=== PATIENT | male | born 1965 | race Caucasian/White ===

== ENCOUNTER 2020-09-17 14:28 | Inpatient (IN) | payer MEDICARE, MEDICAID ==
[~2020-09-17] VITALS: Ht 177.8 cm; Wt 73.0 kg
[~2020-09-17 14:28] MED LIST: AMLO2.5T45 PO; ASPI-1406; ASPI-1497 PO; BENA40TA66; CILO100T PO; GABA-290 PO; GLIP10TA10 PO; LOSA100T32 PO; METF-416 PO; METF1000; PIOG45TA5 PO; SIMV10TA97 PO
[2020-09-17 15:42] LABS: BASOPHILS % 0.8 % (0.0-2.0); HEMATOCRIT. 45.3 % (42.0-52.0); HEMOGLOBIN. 14.9 g/dL (14.0-18.0); LYMPHOCYTES % 8.5 % (20.0-50.0); MEAN CORPUSCULAR VOLUME 91.1 fL (80.0-94.0); MEAN PLATELET VOLUME 9.1 fl (7.4-10.4); MONOCYTES % 4.9 % (2.0-8.0); NEUTROPHILS % 84.8 % (40.0-76.0); PLATELET 171 x1000/uL (130-400); RED BLOOD CELL COUNT 4.98 mill/uL (4.7-6.1); RED CELL DISTRIBUTION WIDTH 14.4 % (11.6-14.6)
[2020-09-17 15:48] LABS: CHLORIDE 98 mEq/L (98-107)
[2020-09-17] MEDS ORDERED: ONDANSETRON HCL 4MG/2ML INJ IV ONE (16:00)
[2020-09-17] MEDS ORDERED: FENTANYL CITRATE/PF 50MCG/ML 2ML VIAL IV ONE (16:45)
[2020-09-17] MEDS ORDERED: CEFTRIAXONE SODIUM 1 G/VIAL IM ONE (17:30)
[2020-09-17] MEDS ORDERED: CEFTRIAXONE 1 G PREMIX 50 ML IV ONE (18:00)
[2020-09-17] MEDS ORDERED: MAGNESIUM/ALUMINUM HYDROXIDE/SIMETHICONE 30ML UDC PO PRN (21:45)
[2020-09-17] MEDS ORDERED: ACETAMINOPHEN 325MG TABLET PO PRN (21:45)
[2020-09-17] MEDS ORDERED: HYDROMORPHONE HCL/PF 2MG/ML CPJ IV PRN (21:45)
[2020-09-18] VITALS (7 sets, daily range): BP systolic 90–119; BP diastolic 56–71
[2020-09-18 06:11] LABS: CHLORIDE 101 mEq/L (98-107)
[2020-09-18 06:38] LABS: BASOPHILS % 0.5 % (0.0-2.0); EOSINOPHILS % 0.9 % (0.0-5.0); HEMATOCRIT. 40.2 % (42.0-52.0); HEMOGLOBIN. 13.3 g/dL (14.0-18.0); LYMPHOCYTES % 18.8 % (20.0-50.0); MEAN CORPUSCULAR VOLUME 90.7 fL (80.0-94.0); MEAN PLATELET VOLUME 9.2 fl (7.4-10.4); MONOCYTES % 11.9 % (2.0-8.0); NEUTROPHILS % 67.9 % (40.0-76.0); PLATELET 176 x1000/uL (130-400); RED BLOOD CELL COUNT 4.43 mill/uL (4.7-6.1); RED CELL DISTRIBUTION WIDTH 14.5 % (11.6-14.6)
[2020-09-18] MEDS ORDERED: DEXTROSE 50% WATER 50ML SYRINGE IV PRN (09:30)
[2020-09-18] MEDS: BLOOD SUGAR DIAGNOSTIC STRIP TEST SCH ×3 (12:10→21:16)
[2020-09-18] MEDS: INSULIN LISPRO 100 UNITS/ML SUBCUT SCH ×3 (12:16→21:00)
[2020-09-19] VITALS (22 sets, daily range): BP systolic 124–178; BP diastolic 74–104
[2020-09-19] MEDS: BLOOD SUGAR DIAGNOSTIC STRIP TEST SCH ×4 (06:12→20:37)
[2020-09-19] MEDS: INSULIN LISPRO 100 UNITS/ML SUBCUT SCH ×4 (06:12→20:37)
[2020-09-19] MEDS ORDERED: ALTEPLASE 2MG/VIAL ITC SCH (10:00)
[2020-09-19 11:45] LABS: PROTHROMBIN TIME 10.8 sec (9.6-11.0)
[2020-09-19] MEDS ORDERED: CEFAZOLIN 1000MG PREMIX 50 ML IV NR (12:15)
[2020-09-19] MEDS ORDERED: FENTANYL CITRATE/PF 50MCG/ML 2ML VIAL ONE (12:26)
[2020-09-19] MEDS ORDERED: HEPARIN 1000 UNITS/ML 10ML ONE (12:31)
[2020-09-19] MEDS ORDERED: LIDOCAINE HCL 1% 20ML VIAL (Pyxis) INJ ONE (12:31)
[2020-09-19] MEDS ORDERED: IOHEXOL-300 100 ML BOTTLE ONE (12:31)
[2020-09-19] MEDS ORDERED: VANCOMYCIN 1500MG in DEXTROSE 5% WATER 250ML IV SCH (13:00)
[2020-09-19] MEDS: ONDANSETRON HCL 4MG/2ML INJ IV PRN (19:55)
[2020-09-20] VITALS (7 sets, daily range): BP systolic 114–162; BP diastolic 69–93
[2020-09-20] MEDS: ONDANSETRON HCL 4MG/2ML INJ IV PRN ×2 (05:03→13:40)
[2020-09-20] MEDS: INSULIN LISPRO 100 UNITS/ML SUBCUT SCH ×4 (06:23→21:37)
[2020-09-20] MEDS: BLOOD SUGAR DIAGNOSTIC STRIP TEST SCH ×4 (06:23→21:37)
[2020-09-20 06:33] LABS: BASOPHILS % 0.6 % (0.0-2.0); EOSINOPHILS % 2.4 % (0.0-5.0); HEMATOCRIT. 39.3 % (42.0-52.0); HEMOGLOBIN. 13.1 g/dL (14.0-18.0); LYMPHOCYTES % 17.8 % (20.0-50.0); MEAN CORPUSCULAR HEMOGLOBIN 30.3 pg (28.0-32.0); MEAN CORPUSCULAR VOLUME 90.4 fL (80.0-94.0); MEAN PLATELET VOLUME 8.8 fl (7.4-10.4); MONOCYTES % 9.7 % (2.0-8.0); NEUTROPHILS % 69.5 % (40.0-76.0); PLATELET 158 x1000/uL (130-400); RED BLOOD CELL COUNT 4.34 mill/uL (4.7-6.1); RED CELL DISTRIBUTION WIDTH 14.4 % (11.6-14.6)
[2020-09-20 07:18] LABS: CHLORIDE 101 mEq/L (98-107)
[2020-09-20] MEDS ORDERED: FENTANYL CITRATE/PF 50MCG/ML 2ML VIAL IV SCH (08:15)
[2020-09-20] MEDS: CLONIDINE 0.1MG TABLET PO PRN (13:35)
[2020-09-21] VITALS: BP 116/80
[2020-09-21 04:00] VITALS: BP 138/82
[2020-09-21] MEDS: BLOOD SUGAR DIAGNOSTIC STRIP TEST SCH ×2 (07:07→12:10)
[2020-09-21] MEDS: INSULIN LISPRO 100 UNITS/ML SUBCUT SCH ×2 (07:09→13:39)
[2020-09-21 08:00] VITALS: BP 139/87
[2020-09-21 12:00] VITALS: BP 141/87
[2020-09-21 16:00] VITALS: BP 168/92
[2020-09-21] MEDS: CLONIDINE 0.1MG TABLET PO PRN (17:19)
[2020-09-21 17:20] VITALS: BP 151/88
[2020-09-21] MEDS ORDERED: ONDA4TAB5 PO (17:52)
== END 2020-09-21 18:35 | disposition home or self-care (01) | DRG 314 ==
LOC: ER 14:47 → 8WST 19:14 → ENRESERV 23:17 → 8WST 23:49
PROVIDERS: ADMIT Hospitalist; ATTEND Hospitalist
PROC: 5A1D70Z Performance of Urinary Filtration, Intermittent, Less than 6 Hours Per Day (ICD-10-PCS; 2020-09-18)
PROC: B51W1ZZ Fluoroscopy of Dialysis Shunt/Fistula using Low Osmolar Contrast (ICD-10-PCS; principal; 2020-09-19)
PROC: B548ZZA Ultrasonography of Superior Vena Cava, Guidance (ICD-10-PCS; 2020-09-19)
PROC: 02HV33Z Insertion of Infusion Device into Superior Vena Cava, Percutaneous Approach (ICD-10-PCS; 2020-09-19)
PROC: B5181ZA Fluoroscopy of Superior Vena Cava using Low Osmolar Contrast, Guidance (ICD-10-PCS; 2020-09-19)
PROC: 5A1D70Z Performance of Urinary Filtration, Intermittent, Less than 6 Hours Per Day (ICD-10-PCS; 2020-09-21)
DX: T82.868A Thrombosis due to vascular prosthetic devices, implants and grafts, initial encounter (principal); K85.90 Acute pancreatitis without necrosis or infection, unspecified; I50.33 Acute on chronic diastolic (congestive) heart failure; N18.6 End stage renal disease; I13.2 Hypertensive heart and chronic kidney disease with heart failure and with stage 5 chronic kidney disease, or end stage renal disease; E87.1 Hypo-osmolality and hyponatremia; R78.81 Bacteremia; T82.818A Embolism due to vascular prosthetic devices, implants and grafts, initial encounter; E11.22 Type 2 diabetes mellitus with diabetic chronic kidney disease; E87.5 Hyperkalemia; N20.0 Calculus of kidney; Y83.2 Surgical operation with anastomosis, bypass or graft as the cause of abnormal reaction of the patient, or of later complication, without mention of misadventure at the time of the procedure; Z20.822 Contact with and (suspected) exposure to COVID-19; I95.9 Hypotension, unspecified; Z99.2 Dependence on renal dialysis; Z87.891 Personal history of nicotine dependence; Y92.89 Other specified places as the place of occurrence of the external cause
CPT/HCPCS: 36415; 36556; 36901; 74176; 76700; 76937; 77001; 80048; 80053; 80076; 80202; 82962; 83605; 84484; 85025; 87426; 93005; 99152; 99153; 99285; C1725; C1752; C1766; C1769; J0690; J0696; J1170; J1644; J1815; J2405; J2997; J3010; J3370; J3490; J7040; J7060; Q9967; G0500

== ENCOUNTER 2024-07-26 06:43 | Inpatient (IN) | payer MEDICARE, MEDICAID ==
[~2024-07-26] VITALS: Ht 177.8 cm; Wt 71.2 kg
[~2024-07-26 06:43] MED LIST changes: -CILO100T PO; +CILO100T3 PO; -GLIP10TA10 PO; +GLIP10TA17 PO; -LOSA100T32 PO; +LOSA100T33 PO; +ONDA4TAB5 PO
[2024-07-26] MEDS: KETOROLAC 30MG/ML VIAL IM STA (07:44)
[2024-07-26] MEDS: ONDANSETRON HCL 4MG/2ML INJ IM ONE (07:48)
[2024-07-26] MEDS ORDERED: MORPHINE SULFATE 4 MG/ML INJ (FOR IV/IM USE) IV STA (08:29)
[2024-07-26 09:38] LABS: CHLORIDE 105 mEq/L (98-107); POTASSIUM 4.8 mEq/L (3.5-5.1); SODIUM 141 mEq/L (136-145)
[2024-07-26] MEDS: MORPHINE SULFATE 4 MG/ML INJ (FOR IV/IM USE) IM ONE (09:38)
[2024-07-26 09:39] LABS: CARBON DIOXIDE 23 mEq/L (21-32)
[2024-07-26 09:40] LABS: CALCIUM 8.5 mg/dL (8.7-10.4)
[2024-07-26 09:45] LABS: GLUCOSE 240 mg/dL (70-105); UREA NITROGEN BLOOD 26 mg/dL (9-23)
[2024-07-26 09:47] LABS: ALANINE AMINOTRANSFERASE 11 IU/L (10-49); ASPARTATE AMINOTRANSFERASE 10 IU/L (<34); BILIRUBIN DIRECT 0.1 mg/dL (<=3.0); BILIRUBIN TOTAL 0.3 mg/dL (0.1-1.0); PROTEIN TOTAL 6.9 g/dL (6.0-8.3)
[2024-07-26 09:51] LABS: BASOPHILS % 0.9 % (0.0-2.0); DIFFERENTIAL COMMENT 0; HEMATOCRIT. 44.3 % (42.0-52.0); LYMPHOCYTES % 8.4 % (20.0-50.0); MEAN CORPUSCULAR HEMOGLOBIN 27.8 pg (28.0-32.0); MEAN CORPUSCULAR HGB CONC 31.5 g/dL (31.0-37.0); MEAN CORPUSCULAR VOLUME 88.1 fL (80.0-94.0); MEAN PLATELET VOLUME 8.3 fl (7.4-10.4); MONOCYTES % 4.7 % (2.0-8.0); PLATELET 190 x1000/uL (130-400); RED BLOOD CELL COUNT 5.03 mill/uL (4.7-6.1); RED CELL DISTRIBUTION WIDTH 21.2 % (11.6-14.6)
[2024-07-26 10:19] LABS: CREATININE 7.4 mg/dL (0.6-1.3)
[2024-07-26 17:00] VITALS: BP 146/90; PULSE 94; RESP 18; TEMP 36.44736; O2SAT 99
[2024-07-26] MEDS: HYDROCODONE/ACETAMINOPHEN 10/325MG TABLET PO PRN (19:11)
[2024-07-26] MEDS ORDERED: NALOXONE HCL 0.4MG/ML VIAL IV PRN (19:15)
[2024-07-26 20:00] VITALS: BP 157/94; PULSE 73; RESP 19; TEMP 36.6696; O2SAT 100
[2024-07-26] MEDS ORDERED: ONDANSETRON HCL 4MG/2ML INJ IV PRN (20:45)
[2024-07-26] MEDS ORDERED: DEXTROSE 50% WATER 50ML SYRINGE IV PRN (20:45)
[2024-07-26] MEDS: BLOOD SUGAR DIAGNOSTIC STRIP TEST SCH (21:00)
[2024-07-26] MEDS: INSULIN LISPRO 100 UNITS/ML SUBCUT SCH (21:00)
[2024-07-26] MEDS: AMLODIPINE 10MG TABLET PO SCH (22:04)
[2024-07-27] VITALS: BP 154/94; PULSE 67; RESP 19; TEMP 36.50292; O2SAT 100
[2024-07-27 00:40] VITALS: BP 154/94; PULSE 67; RESP 18; TEMP 36.5292
[2024-07-27] MEDS: GABAPENTIN 100MG CAPSULE PO SCH (06:00)
[2024-07-27 06:55] LABS: CALCIUM 8.5 mg/dL (8.7-10.4)
[2024-07-27 07:02] LABS: PHOSPHORUS 6.9 mg/dL (2.5-4.9)
[2024-07-27 07:07] LABS: CREATININE 8.9 mg/dL (0.6-1.3)
[2024-07-27 08:00] VITALS: BP 154/84; PULSE 84; RESP 18; TEMP 36.6; O2SAT 95
[2024-07-27 08:03] LABS: BASOPHILS % 1.3 % (0.0-2.0); DIFFERENTIAL COMMENT 0; EOSINOPHILS % 2.6 % (0.0-5.0); HEMATOCRIT. 41.6 % (42.0-52.0); HEMOGLOBIN. 13.3 g/dL (14.0-18.0); LYMPHOCYTES % 29.4 % (20.0-50.0); MEAN CORPUSCULAR HEMOGLOBIN 28.2 pg (28.0-32.0); MEAN CORPUSCULAR HGB CONC 32.1 g/dL (31.0-37.0); MEAN PLATELET VOLUME 8.2 fl (7.4-10.4); MONOCYTES % 11.2 % (2.0-8.0); NEUTROPHILS % 55.5 % (40.0-76.0); PLATELET 181 x1000/uL (130-400); RED BLOOD CELL COUNT 4.72 mill/uL (4.7-6.1); RED CELL DISTRIBUTION WIDTH 21.3 % (11.6-14.6); WHITE BLOOD COUNT 6.3 x1000/uL (4.5-11.0)
[2024-07-27] MEDS ORDERED: SIMVASTATIN 20 MG PO SCH (09:00)
[2024-07-27] MEDS: SEVELAMER CARBONATE 800 MG TABLET PO SCH (09:01)
[2024-07-27] MEDS: ATORVASTATIN CALCIUM 10MG TABLET PO SCH (09:02)
[2024-07-27] MEDS: LOSARTAN 100 MG TABLET PO SCH (09:02)
[2024-07-27] MEDS: FOLIC ACID/VITAMIN B COMP W-C TABLET PO SCH (09:02)
[2024-07-27] MEDS: ASPIRIN 81MG TABLET PO SCH (09:03)
[2024-07-27 12:00] VITALS: BP 122/79; PULSE 76; RESP 18; TEMP 36.7; O2SAT 99
[2024-07-27] MEDS: LIDOCAINE 5% PATCH TOP SCH (13:11)
[2024-07-27] MEDS: ENOXAPARIN 30MG/0.3ML SYR SUBCUT SCH (15:16)
[2024-07-27 16:00] VITALS: BP 124/65; PULSE 77; RESP 19; TEMP 36.8; O2SAT 99
[2024-07-27 20:00] VITALS: BP 106/62; PULSE 88; RESP 16; TEMP 36.6; O2SAT 9
[2024-07-28 04:00] VITALS: BP 111/63; PULSE 88; RESP 18; TEMP 36.7; O2SAT 94
[2024-07-28 07:25] LABS: HEPATITIS B SURFACE ANTIGEN NEGATIVE (Negative)
[2024-07-28 07:45] LABS: HEPATITIS A AB IGM NEGATIVE (Negative)
[2024-07-28 07:46] LABS: HEPATITIS B CORE AB IGM NEGATIVE (Negative); HEPATITIS C AB NON REACTIVE (Neg) (Negative)
[2024-07-28 08:00] VITALS: BP 128/70; PULSE 83; RESP 18; TEMP 36.6; O2SAT 100
[2024-07-28 12:00] VITALS: BP 123/82; PULSE 73; RESP 18; TEMP 37
[2024-07-28 16:00] VITALS: BP 121/60; PULSE 86; RESP 18; TEMP 36.9; O2SAT 98
[2024-07-29] VITALS (9 sets, daily range): BP systolic 90–111; BP diastolic 44–74; PULSE 60–88; RESP 16–18; TEMP 35.8–36.6696; O2SAT 89–100
[2024-07-29] MEDS: ACETAMINOPHEN 325MG TABLET PO PRN (16:15)
[2024-07-29] MEDS ORDERED: LACTULOSE 20G/30ML UDC PO PRN (18:45)
[2024-07-30 08:00] VITALS: BP 114/63; PULSE 88; RESP 18; TEMP 36.9; O2SAT 100
[2024-07-30] MEDS: DOCUSATE SODIUM 250MG CAPSULE PO SCH (11:22)
[2024-07-30 12:00] VITALS: BP 128/69; PULSE 90; RESP 18; TEMP 36.8; O2SAT 95
[2024-07-30 16:00] VITALS: BP 137/78; PULSE 92; RESP 19; TEMP 36.3; O2SAT 98
[2024-07-30 19:43] VITALS: BP 137/78; PULSE 92; TEMP 97.4; O2SAT 97
== END 2024-07-30 19:40 | DRG 183 ==
LOC: ER 07:12 → 6WST 10:57 → EDBEDREQTM 11:17 → EDBEDREQ 11:17
PROVIDERS: ADMIT Internal Medicine; ATTEND Internal Medicine
PROC: 5A1D70Z Performance of Urinary Filtration, Intermittent, Less than 6 Hours Per Day (ICD-10-PCS; principal; 2024-07-29)
DX: S22.41XA Multiple fractures of ribs, right side, initial encounter for closed fracture (principal); N18.6 End stage renal disease; I12.0 Hypertensive chronic kidney disease with stage 5 chronic kidney disease or end stage renal disease; G82.20 Paraplegia, unspecified; M43.17 Spondylolisthesis, lumbosacral region; E11.42 Type 2 diabetes mellitus with diabetic polyneuropathy; E11.22 Type 2 diabetes mellitus with diabetic chronic kidney disease; R29.6 Repeated falls; K80.20 Calculus of gallbladder without cholecystitis without obstruction; W18.39XA Other fall on same level, initial encounter; Z99.2 Dependence on renal dialysis; Z79.82 Long term (current) use of aspirin; Z79.899 Other long term (current) drug therapy; Y93.89 Activity, other specified; Y92.89 Other specified places as the place of occurrence of the external cause; Y99.8 Other external cause status
CPT/HCPCS: 36415; 71101; 72131; 72146; 72148; 74176; 76705; 80048; 80061; 80076; 82962; 83036; 84100; 85025; 86705; 86709; 87340; 90935; 93970; 97162; 97166; 97760; 99285; A4606; J1650; J1815; J1885; J2270; J2405

== ENCOUNTER 2024-08-04 22:10 | Inpatient (IN) | payer MEDICARE, MEDICAID ==
[~2024-08-04] VITALS: Ht 177.8 cm; Wt 71.2 kg
[2024-08-04 20:00] VITALS: BP 133/73; PULSE 96; RESP 18; TEMP 36.5; O2SAT 97
[2024-08-04 22:10] VITALS: BP 133/73; PULSE 86; RESP 18; TEMP 36.5
[~2024-08-04 22:10] MED LIST changes: -METF-416 PO; -METF1000
[2024-08-05] MEDS ORDERED: NALOXONE HCL 0.4MG/ML 1ML VIAL IV PRN (00:45)
[2024-08-05] MEDS ORDERED: ACETAMINOPHEN 325MG TABLET PO PRN ×2 (00:45)
[2024-08-05] MEDS ORDERED: ALBUTEROL (0.083%) 2.5MG/3ML NEB HHN PRN (00:45)
[2024-08-05] MEDS ORDERED: DEXTROSE 50% WATER 50ML SYRINGE IV PRN ×2 (00:45→07:00)
[2024-08-05] MEDS ORDERED: LACTULOSE 20G/30ML UDC PO PRN (00:45)
[2024-08-05] MEDS: BLOOD SUGAR DIAGNOSTIC STRIP TEST SCH ×3 (06:47→11:15)
[2024-08-05] MEDS: GABAPENTIN 100MG CAPSULE PO SCH (07:02)
[2024-08-05 07:12] LABS: BASOPHILS % 1.2 % (0.0-2.0); DIFFERENTIAL COMMENT 0; EOSINOPHILS % 4.6 % (0.0-5.0); HEMATOCRIT. 38.6 % (42.0-52.0); HEMOGLOBIN. 12.8 g/dL (14.0-18.0); LYMPHOCYTES % 18.3 % (20.0-50.0); MEAN CORPUSCULAR HEMOGLOBIN 28.7 pg (28.0-32.0); MEAN CORPUSCULAR HGB CONC 33.3 g/dL (31.0-37.0); MEAN CORPUSCULAR VOLUME 86.3 fL (80.0-94.0); MEAN PLATELET VOLUME 7.9 fl (7.4-10.4); MONOCYTES % 12.5 % (2.0-8.0); NEUTROPHILS % 63.4 % (40.0-76.0); PLATELET 261 x1000/uL (130-400); RED BLOOD CELL COUNT 4.47 mill/uL (4.7-6.1); RED CELL DISTRIBUTION WIDTH 19.3 % (11.6-14.6); WHITE BLOOD COUNT 6.7 x1000/uL (4.5-11.0)
[2024-08-05 07:15] LABS: CHLORIDE 97 mEq/L (98-107); POTASSIUM 4.2 mEq/L (3.5-5.1); SODIUM 138 mEq/L (136-145)
[2024-08-05 07:17] LABS: CARBON DIOXIDE 31 mEq/L (21-32)
[2024-08-05 07:18] LABS: CALCIUM 8.6 mg/dL (8.7-10.4)
[2024-08-05 07:22] LABS: GLUCOSE 105 mg/dL (70-105)
[2024-08-05 07:23] LABS: UREA NITROGEN BLOOD 32 mg/dL (9-23)
[2024-08-05 07:24] LABS: ALANINE AMINOTRANSFERASE 18 IU/L (10-49); ALBUMIN 3.4 g/dL (3.2-4.8); ASPARTATE AMINOTRANSFERASE 12 IU/L (<34)
[2024-08-05 07:25] LABS: BILIRUBIN TOTAL 0.3 mg/dL (0.1-1.0); PREALBUMIN 12.5 mg/dl (10.0-40.0); PROTEIN TOTAL 5.9 g/dL (6.0-8.3)
[2024-08-05 07:32] LABS: CREATININE 10.1 mg/dL (0.6-1.3)
[2024-08-05 08:00] VITALS: BP 137/79; PULSE 97; RESP 20; TEMP 36.1; O2SAT 97
[2024-08-05] MEDS: INSULIN LISPRO 100 UNITS/ML SUBCUT SCH (09:00)
[2024-08-05] MEDS: LOSARTAN 100 MG TABLET PO SCH (09:11)
[2024-08-05] MEDS: FOLIC ACID/VITAMIN B COMP W-C TABLET PO SCH (09:11)
[2024-08-05] MEDS: SEVELAMER CARBONATE 800 MG TABLET PO SCH (09:11)
[2024-08-05] MEDS: DOCUSATE SODIUM 250MG CAPSULE PO SCH (09:11)
[2024-08-05] MEDS: AMLODIPINE 10MG TABLET PO SCH (09:12)
[2024-08-05] MEDS: HYDROCODONE/ACETAMINOPHEN 10/325MG TABLET PO PRN (09:13)
[2024-08-05] MEDS: LIDOCAINE 5% PATCH TOP SCH (09:14)
[2024-08-05] MEDS: ASPIRIN 81MG TABLET PO SCH (09:16)
[2024-08-05] MEDS ORDERED: BISACODYL 10MG SUPP PR PRN (13:15)
[2024-08-05 13:25] LABS: HEPATITIS B SURFACE ANTIGEN NEGATIVE (Negative)
[2024-08-05 13:45] LABS: HEPATITIS A AB IGM NEGATIVE (Negative)
[2024-08-05 13:46] LABS: HEPATITIS B CORE AB IGM NEGATIVE (Negative); HEPATITIS C AB NON REACTIVE (Neg) (Negative)
[2024-08-05] MEDS: LACTULOSE 20G/30ML UDC PO SCH (17:30)
[2024-08-05] MEDS: ERGOCALCIFEROL 50000UNITS CAPSULE PO SCH (17:30)
[2024-08-05] MEDS: CYANOCOBALAMIN 1000MCG/ML VIAL IM SCH (17:30)
[2024-08-05 20:12] VITALS: BP 132/71; PULSE 91; RESP 20; TEMP 36.3; O2SAT 100
[2024-08-05] MEDS: ATORVASTATIN CALCIUM 10MG TABLET PO SCH (20:45)
[2024-08-06] VITALS (11 sets, daily range): BP systolic 103–142; BP diastolic 63–89; PULSE 70–91; RESP 18–20; TEMP 36.2–36.44736; O2SAT 88–99
[2024-08-06 07:44] LABS: BASOPHILS % 1.1 % (0.0-2.0); DIFFERENTIAL COMMENT 0; HEMATOCRIT. 38.7 % (42.0-52.0); HEMOGLOBIN. 12.4 g/dL (14.0-18.0); LYMPHOCYTES % 23.6 % (20.0-50.0); MEAN CORPUSCULAR VOLUME 87.5 fL (80.0-94.0); MONOCYTES % 12.6 % (2.0-8.0); NEUTROPHILS % 57.7 % (40.0-76.0); PLATELET 271 x1000/uL (130-400); RED BLOOD CELL COUNT 4.42 mill/uL (4.7-6.1); RED CELL DISTRIBUTION WIDTH 18.8 % (11.6-14.6); WHITE BLOOD COUNT 6.7 x1000/uL (4.5-11.0)
[2024-08-06] MEDS: ONDANSETRON HCL 4MG/2ML INJ IV PRN (09:35)
[2024-08-07 08:00] VITALS: BP 124/71; PULSE 83; RESP 18; TEMP 36.3; O2SAT 91
[2024-08-07] MEDS ORDERED: LACTULOSE 20G/30ML UDC PO NR (14:15)
[2024-08-07] MEDS: SORBITOL 70% SOLN 30ML PO NR (15:03)
[2024-08-07 20:00] VITALS: BP 137/77; PULSE 90; RESP 18; TEMP 36.8; O2SAT 93
[2024-08-07] MEDS: SENNOSIDES/DOCUSATE SOD 8.6/50MG TABLET PO SCH (21:59)
[2024-08-08 06:39] LABS: CALCIUM 8.7 mg/dL (8.7-10.4); POTASSIUM 4.2 mEq/L (3.5-5.1)
[2024-08-08] MEDS: PANTOPRAZOLE 40MG DR TABLET PO SCH (07:07)
[2024-08-08 07:17] LABS: DIFFERENTIAL COMMENT 0; HEMATOCRIT. 37.6 % (42.0-52.0); HEMOGLOBIN. 12.4 g/dL (14.0-18.0); LYMPHOCYTES % 21.7 % (20.0-50.0); MEAN CORPUSCULAR HEMOGLOBIN 28.7 pg (28.0-32.0); MEAN CORPUSCULAR HGB CONC 32.9 g/dL (31.0-37.0); MEAN CORPUSCULAR VOLUME 87.3 fL (80.0-94.0); MEAN PLATELET VOLUME 7.9 fl (7.4-10.4); MONOCYTES % 11.8 % (2.0-8.0); NEUTROPHILS % 60.5 % (40.0-76.0); PLATELET 298 x1000/uL (130-400); RED BLOOD CELL COUNT 4.31 mill/uL (4.7-6.1); RED CELL DISTRIBUTION WIDTH 18.4 % (11.6-14.6)
[2024-08-08 07:25] LABS: CREATININE 9.7 mg/dL (0.6-1.3)
[2024-08-08 08:00] VITALS: BP 133/71; PULSE 87; RESP 20; TEMP 36.4; O2SAT 98
[2024-08-08 20:00] VITALS: BP 127/70; PULSE 84; RESP 19; TEMP 36.8; O2SAT 96
[2024-08-09 08:00] VITALS: BP 122/67; PULSE 85; RESP 19; TEMP 36.7; O2SAT 95
[2024-08-09 20:00] VITALS: BP 114/64; PULSE 69; PULSE 82; RESP 18; RESP 19; TEMP 36.2; TEMP 36.5; O2SAT 97
[2024-08-10] VITALS (10 sets, daily range): BP systolic 84–133; BP diastolic 54–78; PULSE 76–81; RESP 14–20; TEMP 36.3918–36.6696; O2SAT 94–98
[2024-08-10] MEDS ORDERED: NALOXONE HCL 0.4MG/ML VIAL IV PRN (12:00)
[2024-08-10] MEDS: HYDROCODONE/ACETAMINOPHEN 10/325MG TABLET PO PRN (12:08)
[2024-08-10 12:15] LABS: BASOPHILS % 1.4 % (0.0-2.0); DIFFERENTIAL COMMENT 0; EOSINOPHILS % 4.5 % (0.0-5.0); HEMATOCRIT. 38.1 % (42.0-52.0); HEMOGLOBIN. 12.3 g/dL (14.0-18.0); LYMPHOCYTES % 20.6 % (20.0-50.0); MEAN CORPUSCULAR HEMOGLOBIN 28.1 pg (28.0-32.0); MEAN CORPUSCULAR HGB CONC 32.4 g/dL (31.0-37.0); MEAN CORPUSCULAR VOLUME 86.6 fL (80.0-94.0); MEAN PLATELET VOLUME 7.2 fl (7.4-10.4); MONOCYTES % 11.3 % (2.0-8.0); NEUTROPHILS % 62.2 % (40.0-76.0); PLATELET 300 x1000/uL (130-400); RED BLOOD CELL COUNT 4.39 mill/uL (4.7-6.1); RED CELL DISTRIBUTION WIDTH 17.4 % (11.6-14.6); WHITE BLOOD COUNT 8.8 x1000/uL (4.5-11.0)
[2024-08-10] MEDS: POLYETHYLENE GLYCOL 3350 (17GM) 1 DOSE PACK PO SCH (23:06)
[2024-08-11 08:00] VITALS: BP 139/75; PULSE 85; RESP 19; TEMP 36.2; O2SAT 98
[2024-08-11 20:00] VITALS: BP 117/64; PULSE 83; RESP 19; TEMP 36.2; O2SAT 83
[2024-08-12] VITALS (9 sets, daily range): BP systolic 126–165; BP diastolic 59–79; PULSE 74–81; RESP 18–19; TEMP 36.2–36.55848; O2SAT 96–98
[2024-08-13 08:00] VITALS: BP 121/67; PULSE 80; RESP 18; TEMP 36.3; O2SAT 95; O2SAT 98
[2024-08-13 18:24] LABS: BASOPHILS % 1.4 % (0.0-2.0); EOSINOPHILS % 4.2 % (0.0-5.0); HEMOGLOBIN. 11.6 g/dL (14.0-18.0); LYMPHOCYTES % 20.2 % (20.0-50.0); MEAN CORPUSCULAR HGB CONC 32.3 g/dL (31.0-37.0); MEAN CORPUSCULAR VOLUME 86.7 fL (80.0-94.0); MEAN PLATELET VOLUME 7.7 fl (7.4-10.4); MONOCYTES % 13.3 % (2.0-8.0); NEUTROPHILS % 60.9 % (40.0-76.0); PLATELET 321 x1000/uL (130-400); RED BLOOD CELL COUNT 4.16 mill/uL (4.7-6.1); RED CELL DISTRIBUTION WIDTH 18.5 % (11.6-14.6); WHITE BLOOD COUNT 7.7 x1000/uL (4.5-11.0)
[2024-08-13 18:32] LABS: POTASSIUM 5.7 mEq/L (3.5-5.1)
[2024-08-13 18:34] LABS: CALCIUM 8.5 mg/dL (8.7-10.4)
[2024-08-13 18:48] LABS: CREATININE 8.4 mg/dL (0.6-1.3)
[2024-08-13] MEDS: SODIUM ZIRCONIUM CYCLOSILICATE 10GM/PACKET PO NR (19:25)
[2024-08-13 20:00] VITALS: BP 130/68; PULSE 84; RESP 18; TEMP 36.7; O2SAT 94
[2024-08-14] VITALS (9 sets, daily range): BP systolic 112–142; BP diastolic 69–78; PULSE 76–86; RESP 18–20; TEMP 36.1–36.28068; O2SAT 97–99
[2024-08-14] MEDS ORDERED: LOSA100T33 PO (09:49)
[2024-08-14] MEDS ORDERED: AMLO10TA80 PO (09:49)
[2024-08-14] MEDS ORDERED: PANT40TA51 PO (09:49)
== END 2024-08-14 16:48 | disposition home health service (06) | DRG 183 ==
PROVIDERS: ADMIT Physical Medicine & Rehabilitation Spinal Cord Injury Medicine; ATTEND Internal Medicine
PROC: 5A1D70Z Performance of Urinary Filtration, Intermittent, Less than 6 Hours Per Day (ICD-10-PCS; principal; 2024-08-06)
PROC: 5A1D70Z Performance of Urinary Filtration, Intermittent, Less than 6 Hours Per Day (ICD-10-PCS; 2024-08-10)
PROC: 5A1D70Z Performance of Urinary Filtration, Intermittent, Less than 6 Hours Per Day (ICD-10-PCS; 2024-08-12)
PROC: 5A1D70Z Performance of Urinary Filtration, Intermittent, Less than 6 Hours Per Day (ICD-10-PCS; 2024-08-14)
DX: S22.41XA Multiple fractures of ribs, right side, initial encounter for closed fracture (principal); J96.01 Acute respiratory failure with hypoxia; S27.1XXA Traumatic hemothorax, initial encounter; N18.6 End stage renal disease; G82.20 Paraplegia, unspecified; I12.0 Hypertensive chronic kidney disease with stage 5 chronic kidney disease or end stage renal disease; E11.22 Type 2 diabetes mellitus with diabetic chronic kidney disease; E11.42 Type 2 diabetes mellitus with diabetic polyneuropathy; K80.20 Calculus of gallbladder without cholecystitis without obstruction; M47.816 Spondylosis without myelopathy or radiculopathy, lumbar region; M48.061 Spinal stenosis, lumbar region without neurogenic claudication; M51.369 Other intervertebral disc degeneration, lumbar region without mention of lumbar back pain or lower extremity pain; R29.6 Repeated falls; S20.221A Contusion of right back wall of thorax, initial encounter; W18.39XA Other fall on same level, initial encounter; Y93.89 Activity, other specified; Y92.89 Other specified places as the place of occurrence of the external cause; Z99.2 Dependence on renal dialysis; Z91.81 History of falling; Z82.49 Family history of ischemic heart disease and other diseases of the circulatory system; Y99.8 Other external cause status; E55.9 Vitamin D deficiency, unspecified; R13.14 Dysphagia, pharyngoesophageal phase; K59.00 Constipation, unspecified; R53.81 Other malaise; R26.9 Unspecified abnormalities of gait and mobility; N20.0 Calculus of kidney; M48.02 Spinal stenosis, cervical region; F32.A Depression, unspecified; F41.9 Anxiety disorder, unspecified; M43.16 Spondylolisthesis, lumbar region; Z79.899 Other long term (current) drug therapy
CPT/HCPCS: 36415; 71045; 74018; 74230; 80048; 80053; 82962; 83036; 84134; 85025; 86705; 86709; 87340; 90935; 92523; 92610; 92611; 97110; 97112; 97116; 97162; 97167; 97530; 97535; A4606; J1815; J2405; J3420

== ENCOUNTER 2024-10-18 12:41 | Inpatient (IN) | payer MEDICARE, MEDICAID ==
[~2024-10-18] VITALS: Ht 177.8 cm; Wt 73.0 kg
[~2024-10-18 12:41] MED LIST changes: +AMLO10TA80 PO; -AMLO2.5T45 PO; -BENA40TA66; +PANT40TA51 PO
[2024-10-18 16:00] VITALS: BP 149/82; PULSE 90; RESP 18; TEMP 36.4; O2SAT 97
[2024-10-18 16:33] VITALS: BP 111/70; PULSE 92; RESP 16; TEMP 36.8
[2024-10-18] MEDS ORDERED: CLONIDINE 0.1MG TABLET PO PRN (19:45)
[2024-10-18] MEDS ORDERED: ONDANSETRON HCL 4MG/2ML INJ IV PRN (19:45)
[2024-10-18] MEDS ORDERED: MAGNESIUM/ALUMINUM HYDROXIDE/SIMETHICONE 30ML UDC PO PRN (19:45)
[2024-10-18] MEDS ORDERED: ACETAMINOPHEN 325MG TABLET PO PRN ×2 (19:45)
[2024-10-18] MEDS ORDERED: ZOLPIDEM TARTRATE 5MG TABLET PO PRN (19:45)
[2024-10-18] MEDS ORDERED: DEXTROSE 50% WATER 50ML SYRINGE IV PRN (19:45)
[2024-10-18] MEDS ORDERED: HYDROCODONE/ACETAMINOPHEN 5/325MG TABLET PO PRN (19:45)
[2024-10-18] MEDS ORDERED: DIPHENHYDRAMINE 50MG/ML VIAL IV PRN (19:45)
[2024-10-18 20:00] VITALS: BP 161/75; PULSE 90; RESP 16; TEMP 36.4; O2SAT 98
[2024-10-18] MEDS: BLOOD SUGAR DIAGNOSTIC STRIP TEST SCH (21:00)
[2024-10-18] MEDS: PIPERACILLIN/TAZO 3.375G/50ML 50 ML IV SCH (22:00)
[2024-10-18] MEDS: INSULIN LISPRO 100 UNITS/ML SUBCUT SCH (22:22)
[2024-10-18] MEDS: INSULIN GLARGINE 100 UNITS/ML SUBCUT SCH (22:22)
[2024-10-18] MEDS: PREGABALIN 75MG CAPSULE PO SCH (22:23)
[2024-10-18] MEDS: CILOSTAZOL 100MG TABLET PO SCH (22:23)
[2024-10-18] MEDS: ATORVASTATIN CALCIUM 10MG TABLET PO SCH (22:26)
[2024-10-19] VITALS: BP 127/80; PULSE 75; RESP 17; TEMP 36.7; O2SAT 97
[2024-10-19 04:00] VITALS: BP 138/79; PULSE 96; RESP 20; TEMP 36.3; O2SAT 95
[2024-10-19] MEDS: PANTOPRAZOLE 40MG DR TABLET PO SCH (06:50)
[2024-10-19 06:53] LABS: BASOPHILS % 1.1 % (0.0-2.0); EOSINOPHILS % 1.9 % (0.0-5.0); HEMATOCRIT. 33.4 % (42.0-52.0); HEMOGLOBIN. 10.9 g/dL (14.0-18.0); LYMPHOCYTES % 17.7 % (20.0-50.0); MEAN CORPUSCULAR HEMOGLOBIN 27.4 pg (28.0-32.0); MEAN CORPUSCULAR HGB CONC 32.6 g/dL (31.0-37.0); MEAN CORPUSCULAR VOLUME 83.9 fL (80.0-94.0); MONOCYTES % 9.9 % (2.0-8.0); NEUTROPHILS % 69.4 % (40.0-76.0); PLATELET 323 x1000/uL (130-400); RED BLOOD CELL COUNT 3.97 mill/uL (4.7-6.1); RED CELL DISTRIBUTION WIDTH 15.8 % (11.6-14.6); WHITE BLOOD COUNT 8.9 x1000/uL (4.5-11.0)
[2024-10-19 06:57] LABS: POTASSIUM 4.8 mEq/L (3.5-5.1)
[2024-10-19 06:59] LABS: CALCIUM 8.9 mg/dL (8.7-10.4)
[2024-10-19 08:07] LABS: CREATININE 8.4 mg/dL (0.6-1.3)
[2024-10-19] MEDS: AMLODIPINE 2.5MG TABLET PO SCH (09:23)
[2024-10-19] MEDS: LOSARTAN 50 MG TABLET PO SCH (09:23)
[2024-10-19] MEDS: SODIUM CHLORIDE 0.9% 3ML FLUSH IVF SCH (09:24)
[2024-10-19] MEDS: ASPIRIN 81MG EC TABLET PO SCH (09:24)
[2024-10-19 12:00] VITALS: BP 121/75; PULSE 90; RESP 20; TEMP 36.2; O2SAT 95
[2024-10-19 16:00] VITALS: BP 101/56; PULSE 100; RESP 19; TEMP 36.1; O2SAT 97
[2024-10-19 20:00] VITALS: BP 96/57; PULSE 87; RESP 16; TEMP 36.7; O2SAT 100
[2024-10-19] MEDS: INSULIN GLARGINE 100 UNITS/ML SUBCUT SCH (21:41)
[2024-10-20] VITALS (14 sets, daily range): BP systolic 87–129; BP diastolic 49–94; PULSE 67–114; RESP 17–20; TEMP 36.4–36.8; O2SAT 97–100
[2024-10-20 07:08] LABS: POTASSIUM 5.1 mEq/L (3.5-5.1)
[2024-10-20 07:09] LABS: CALCIUM 9.1 mg/dL (8.7-10.4)
[2024-10-20 07:12] LABS: EOSINOPHILS % 2.3 % (0.0-5.0); HEMATOCRIT. 34.5 % (42.0-52.0); HEMOGLOBIN. 11.3 g/dL (14.0-18.0); LYMPHOCYTES % 14.1 % (20.0-50.0); MEAN CORPUSCULAR HEMOGLOBIN 27.5 pg (28.0-32.0); MEAN CORPUSCULAR HGB CONC 32.9 g/dL (31.0-37.0); MEAN CORPUSCULAR VOLUME 83.6 fL (80.0-94.0); MEAN PLATELET VOLUME 8.2 fl (7.4-10.4); MONOCYTES % 7.9 % (2.0-8.0); NEUTROPHILS % 74.7 % (40.0-76.0); PLATELET 373 x1000/uL (130-400); RED BLOOD CELL COUNT 4.13 mill/uL (4.7-6.1); RED CELL DISTRIBUTION WIDTH 16.3 % (11.6-14.6); WHITE BLOOD COUNT 10.5 x1000/uL (4.5-11.0)
[2024-10-20 15:24] LABS: HEPATITIS B SURFACE ANTIGEN NEGATIVE (Negative)
[2024-10-20 15:45] LABS: HEPATITIS A AB IGM NEGATIVE (Negative)
[2024-10-20 15:46] LABS: HEPATITIS B CORE AB IGM NEGATIVE (Negative); HEPATITIS C AB NON REACTIVE (Neg) (Negative)
[2024-10-20] MEDS: VANCOMYCIN 1.5GM PMX (XELLIA) 300 ML IV SCH (17:14)
[2024-10-21] VITALS: BP 99/52; PULSE 102; RESP 16; TEMP 36.4; O2SAT 97
[2024-10-21 04:00] VITALS: BP 130/69; PULSE 63; RESP 17; TEMP 37.1; O2SAT 100
[2024-10-21 08:00] VITALS: BP 106/50; PULSE 100; RESP 19; TEMP 36.6; O2SAT 100
[2024-10-21] MEDS: FAMOTIDINE 20MG TABLET PO SCH (08:12)
[2024-10-21 08:14] LABS: BASOPHILS % 0.9 % (0.0-2.0); EOSINOPHILS % 1.3 % (0.0-5.0); HEMATOCRIT. 34.3 % (42.0-52.0); HEMOGLOBIN. 11.1 g/dL (14.0-18.0); LYMPHOCYTES % 11.5 % (20.0-50.0); MEAN CORPUSCULAR HEMOGLOBIN 27.4 pg (28.0-32.0); MEAN CORPUSCULAR HGB CONC 32.3 g/dL (31.0-37.0); MEAN PLATELET VOLUME 8.1 fl (7.4-10.4); MONOCYTES % 9.2 % (2.0-8.0); NEUTROPHILS % 77.1 % (40.0-76.0); PLATELET 375 x1000/uL (130-400); RED BLOOD CELL COUNT 4.03 mill/uL (4.7-6.1); RED CELL DISTRIBUTION WIDTH 16.3 % (11.6-14.6); WHITE BLOOD COUNT 11.2 x1000/uL (4.5-11.0)
[2024-10-21 08:41] LABS: POTASSIUM 4.9 mEq/L (3.5-5.1)
[2024-10-21 08:42] LABS: CALCIUM 9.1 mg/dL (8.7-10.4)
[2024-10-21 09:02] LABS: CREATININE 6.7 mg/dL (0.6-1.3)
[2024-10-21 12:00] VITALS: BP 111/40; PULSE 100; RESP 18; TEMP 36.1; O2SAT 100
[2024-10-21 16:00] VITALS: BP 106/67; PULSE 95; RESP 19; TEMP 36.9; O2SAT 100
[2024-10-21] MEDS ORDERED: NALOXONE HCL 0.4MG/ML VIAL IV PRN (16:30)
[2024-10-21] MEDS: CEFAZOLIN 1000MG PREMIX 50 ML IV SCH (17:58)
[2024-10-21 20:00] VITALS: BP 104/68; PULSE 97; RESP 19; TEMP 36.9; O2SAT 98
[2024-10-21] MEDS: LACTOBACILLUS RHAMNOSUS GG CAP PO SCH (22:30)
[2024-10-22] VITALS (14 sets, daily range): BP systolic 95–132; BP diastolic 53–79; PULSE 82–111; RESP 14–19; TEMP 36.114–36.9; O2SAT 95–100
[2024-10-22 07:00] LABS: POTASSIUM 5.3 mEq/L (3.5-5.1)
[2024-10-22 07:01] LABS: CALCIUM 8.7 mg/dL (8.7-10.4)
[2024-10-22 07:03] LABS: BASOPHILS % 1.1 % (0.0-2.0); EOSINOPHILS % 1.8 % (0.0-5.0); HEMATOCRIT. 32.5 % (42.0-52.0); HEMOGLOBIN. 10.7 g/dL (14.0-18.0); LYMPHOCYTES % 16.5 % (20.0-50.0); MEAN CORPUSCULAR HEMOGLOBIN 27.8 pg (28.0-32.0); MEAN CORPUSCULAR HGB CONC 32.8 g/dL (31.0-37.0); MEAN CORPUSCULAR VOLUME 84.8 fL (80.0-94.0); MEAN PLATELET VOLUME 7.9 fl (7.4-10.4); MONOCYTES % 8.7 % (2.0-8.0); NEUTROPHILS % 71.9 % (40.0-76.0); PLATELET 396 x1000/uL (130-400); RED BLOOD CELL COUNT 3.83 mill/uL (4.7-6.1); RED CELL DISTRIBUTION WIDTH 16.4 % (11.6-14.6); WHITE BLOOD COUNT 10.9 x1000/uL (4.5-11.0)
[2024-10-22 07:19] LABS: CREATININE 8.8 mg/dL (0.6-1.3)
[2024-10-23] VITALS: BP 117/66; PULSE 100; RESP 19; TEMP 37.3; O2SAT 94
[2024-10-23 08:00] VITALS: BP 126/72; PULSE 102; RESP 20; TEMP 36.2; O2SAT 97
[2024-10-23 10:19] VITALS: BP 126/72; PULSE 102; TEMP 97.1; O2SAT 97
[2024-10-23 11:51] LABS: POTASSIUM 4.9 mEq/L (3.5-5.1)
[2024-10-23 11:52] LABS: CALCIUM 9.3 mg/dL (8.7-10.4)
[2024-10-23 11:59] LABS: CREATININE 7.9 mg/dL (0.6-1.3)
== END 2024-10-23 11:05 | disposition home health service (06) | DRG 299 ==
LOC: 6EST 12:41
PROVIDERS: ADMIT Internal Medicine; ATTEND Internal Medicine
PROC: 5A1D70Z Performance of Urinary Filtration, Intermittent, Less than 6 Hours Per Day (ICD-10-PCS; principal; 2024-10-20)
PROC: 5A1D70Z Performance of Urinary Filtration, Intermittent, Less than 6 Hours Per Day (ICD-10-PCS; 2024-10-22)
DX: E11.52 Type 2 diabetes mellitus with diabetic peripheral angiopathy with gangrene (principal); N18.6 End stage renal disease; G82.20 Paraplegia, unspecified; I12.0 Hypertensive chronic kidney disease with stage 5 chronic kidney disease or end stage renal disease; L97.419 Non-pressure chronic ulcer of right heel and midfoot with unspecified severity; M86.8X7 Other osteomyelitis, ankle and foot; E11.621 Type 2 diabetes mellitus with foot ulcer; D64.9 Anemia, unspecified; E11.69 Type 2 diabetes mellitus with other specified complication; Z99.2 Dependence on renal dialysis; K80.20 Calculus of gallbladder without cholecystitis without obstruction; M43.10 Spondylolisthesis, site unspecified; E11.22 Type 2 diabetes mellitus with diabetic chronic kidney disease; J44.9 Chronic obstructive pulmonary disease, unspecified; L97.519 Non-pressure chronic ulcer of other part of right foot with unspecified severity; E11.42 Type 2 diabetes mellitus with diabetic polyneuropathy; E78.5 Hyperlipidemia, unspecified; G89.29 Other chronic pain; S91.302A Unspecified open wound, left foot, initial encounter; M48.061 Spinal stenosis, lumbar region without neurogenic claudication; N20.0 Calculus of kidney; F17.210 Nicotine dependence, cigarettes, uncomplicated; Z79.4 Long term (current) use of insulin; Z79.82 Long term (current) use of aspirin; Z79.899 Other long term (current) drug therapy; Z82.49 Family history of ischemic heart disease and other diseases of the circulatory system; Z83.3 Family history of diabetes mellitus; Z91.81 History of falling; X58.XXXA Exposure to other specified factors, initial encounter; Y93.89 Activity, other specified; Y92.89 Other specified places as the place of occurrence of the external cause; Y99.8 Other external cause status
CPT/HCPCS: 36415; 71045; 71250; 73650; 73718; 80048; 80202; 82962; 83036; 84145; 85025; 85651; 86705; 86709; 87070; 87077; 87186; 87340; 90935; 93005; 93922; 93970; A4606; J0690; J1815; J2543; J3370